=== PATIENT | female | born 1995 | race Two or more races ===

== ENCOUNTER 2021-10-03 02:19 | Emergency (ER) | payer SELFPAY ==
[~2021-10-03] VITALS: Ht 180.3 cm; Wt 103.9 kg
--- NOTE | 2021-10-03 03:29 | PHYS DOC ---
Past Medical History Past Surgical History: No Surgical History (SCOTT REDDY MD) General Adult EDM: Chief Complaint: FACE PAIN HPI: HPI: Patient is a 26 year old female who presents with multiple complaints. 1. Abdominal pain States that she has lower abdominal pain in the bilateral lower quadrants. Radiates towards the back. Associated with nausea, vomiting, chills. No fever s. No changes in bowel movements. No vaginal discharge or bleeding. Denies dysuria or urgency, but has had increased urinary frequency. States that this pain has been ongoing for 2 years, but over the past week it has increased in frequency and intensity. States that the pain ramps up and feels very sharp, and it sometimes improves on its own. 2. Headache, left sided numbness Patient states for the past week has been getting intermittent headaches. Described as sharp. 7/10 pain. Not sudden onset. When she gets the headaches she also has left sided numbness. States the left side of her tongue, her left arm, and her left leg are affected. She feels like it hurts to move anything on the left side when this happens so thinks her left side may be slightly weak. When the headache goes away her numbness also improves. No speech difficulty, facial assymmetry, confusion, or coordination difficulty. States she has never had these symptoms before the past week. (SCOTT REDDY MD) Review of Systems: Review of Systems: Constitutional: Denies fever or chills. [] Eyes: Denies change in visual acuity. [] HENT: Denies nasal congestion or sore throat. [] Respiratory: Denies cough or shortness of breath. [] Cardiovascular: Denies chest pain or edema. [] GI: Denies abdominal pain, nausea, vomiting, bloody stools or diarrhea. [] : Denies dysuria. [] Musculoskeletal: Denies back pain or joint pain. [] Integument: Denies rash. [] Neurologic: Denies headache, focal weakness or sensory changes. [] Endocrine: Denies polyuria or polydipsia. [] Lymphatic: Denies swollen glands. [] Psychiatric: Denies depression or anxiety. [] (SCOTT REDDY MD) Heart Score: C/O Chest Pain: No (SCOTT REDDY MD) C/O Chest Pain: N/A (RIOJAS,PETER T DO) Allergies: Allergies: Allergies Coded Allergies Type Severity Reaction Last Updated Verified No Known Drug Allergies 10/03/21 No (SCOTT REDDY MD) Physical Exam: PE: Constitutional: Well developed, well nourished, no acute distress, non-toxic appearance. [] HENT: Normocephalic, atraumatic. Eyes: PERRLA, EOMI, conjunctiva normal, no discharge. [] Neck: Normal range of motion, no tenderness, supple, no stridor. [] Cardiovascular:Heart rate regular rhythm, no murmur [] Lungs & Thorax: Bilateral breath sounds clear to auscultation [] Abdomen: Mild lower abdominal tenderness with palpation in the bilateral lower quadrants. No guarding. Nonperitoneal. Skin: Warm, dry, no erythema, no rash. [] Extremities: No tenderness, no cyanosis, no clubbing, ROM intact, no edema. [] Neurologic: Alert, oriented to person, place, time. Face is symmetric. Speech is normal. Cranial nerves III-XII intact. 5/5 strength in bilateral upper and lower extremities in all dermatomes. No dysmetria with [id number] or [id number] testing. Gait is stable. Psychologic: Affect normal, judgement normal, mood normal. [] (SCOTT REDDY MD) Current Patient Data: Vital Signs: Vital Signs Date Time Temp Pulse Resp B/P (MAP) Pulse Ox O2 Delivery O2 Flow Rate FiO2 10/03/21 02:41 97.8 76 16 130/62 (84) 98 Room Air 97.8 (SCOTT REDDY MD) Labs: Laboratory Tests Test 10/03/21 04:15 10/03/21 04:21 White Blood Count 8.6 x10^3/uL Red Blood Count 4.81 x10^6/uL Hemoglobin 13.9 g/dL Hematocrit 40.6 % Mean Corpuscular Volume 85 fL Mean Corpuscular Hemoglobin 29 pg Mean Corpuscular Hemoglobin Concent 34 g/dL Red Cell Distribution Width 13.2 % Platelet Count 273 x10^3/uL Neutrophils (%) (Auto) 54 % Lymphocytes (%) (Auto) 34 % Monocytes (%) (Auto) 8 % Eosinophils (%) (Auto) 3 % Basophils (%) (Auto) 1 % Neutrophils # (Auto) 4.7 x10^3/uL Lymphocytes # (Auto) 2.9 x10^3/uL Monocytes # (Auto) 0.7 x10^3/uL Eosinophils # (Auto) 0.3 x10^3/uL Basophils # (Auto) 0.1 x10^3/uL Urine Collection Type Void Urine Color Yellow Urine Clarity Clear Urine pH 6.0 Urine Specific [place] >=1.030 Urine Protein Negative mg/dL Urine Glucose (UA) Negative mg/dL Urine Ketones (Stick) Negative mg/dL Urine Blood Trace Urine Nitrite Negative Urine Bilirubin Negative Urine Urobilinogen Dipstick 0.2 mg/dL Urine Leukocyte Esterase Negative Urine RBC 1-2 /HPF Urine WBC 1-4 /HPF Urine Squamous Epithelial Cells Mod /LPF Urine Bacteria 0 /HPF Urine Mucus Mod /LPF Sodium Level 139 mmol/L Potassium Level 3.9 mmol/L Chloride Level 106 mmol/L Carbon Dioxide Level 25 mmol/L Anion Gap 8 Blood Urea Nitrogen 16 mg/dL Creatinine 0.8 mg/dL Estimated GFR (Cockcroft-Gault) 86.7 BUN/Creatinine Ratio 20 Glucose Level 110 mg/dL Calcium Level 8.2 mg/dL Total Bilirubin 0.4 mg/dL Aspartate Amino Transf (AST/SGOT) 33 U/L Alanine Aminotransferase (ALT/SGPT) 87 U/L Alkaline Phosphatase 124 U/L Total Protein 8.3 g/dL Albumin 3.9 g/dL Albumin/Globulin Ratio 0.9 Lipase 62 U/L Bedside Urine HCG, Qualitative Hcg negative Current Medications Medications (Trade) Dose Ordered Sig/Dejuan Route PRN Reason Start Time Stop Time Status Last Admin Dose Admin Prochlorperazine Edisylate (Compazine) 10 mg 1X ONCE IV 10/03/21 04:00 10/03/21 04:01 DC 10/03/21 04:00 Ketorolac Tromethamine (Toradol 15mg Vial) 15 mg 1X ONCE IVP 10/03/21 04:00 10/03/21 04:01 DC 10/03/21 04:00 Diphenhydramine HCl (Benadryl) 25 mg 1X ONCE IVP 10/03/21 04:00 10/03/21 04:01 DC 10/03/21 04:00 Iohexol (Omnipaque 350 Mg/ml) 75 ml 1X ONCE IV 10/03/21 06:00 10/03/21 06:01 DC 10/03/21 06:26 Info (CONTRAST GIVEN -- Rx MONITORING) 1 each PRN DAILY PRN MC SEE COMMENTS 10/03/21 05:45 10/05/21 05:44 (JORDYN RIOJAS DO) EKG: EKG: [] (SCOTT REDDY MD) Radiology/Procedures: Radiology/Procedures: [] Impression: [facility] [address] [place] [address] IMAGING REPORT Signed PATIENT: NENA BENNETT ACCOUNT: [id number] : 1995 LOCATION: ER AGE: 26 SEX: F EXAM STATUS: REG ER ORD. PHYSICIAN: SCOTT REDDY MD REASON: headache, left sided "numbness" PROCEDURE: CT HEAD WO CONTRAST CT Head W/O Contrast: History: Reason: headache, left sided "numbness" Comparison: none Axial images were obtained without contrast. The dinh and white matter appears normal and symmetrical for the patients age. There is no mass effect, extraaxial fluid collections or hydrocephalus. There is no gross bleed. There is no focal loss of dinh-white matter distinction to suggest acute ischemia, i.e. stroke. Impression: No acute findings. RS Compliance Statement: One or more of the following individualized dose reduction techniques were utilized for this examination: 1. Automated exposure control 2. Adjustment of the mA and/or kV according to patient size 3. Use of iterative reconstruction technique Electronically signed by: Yani Meléndez III, MD (10/03/2021 4:40 AM) [facility] DICTATED and SIGNED BY: YANI MELÉNDEZ III, MD DATE: 10/03/21 [id number] (SCOTT REDDY MD) Radiology/Procedures: [facility] [address] [place] [address] IMAGING REPORT Signed PATIENT: NENA BENNETT ACCOUNT: [id number] : 1995 LOCATION: ER AGE: 26 SEX: F EXAM STATUS: REG ER ORD. PHYSICIAN: SCOTT REDDY MD REASON: headache, left sided "numbness" PROCEDURE: CT HEAD WO CONTRAST CT Head W/O Contrast: History: Reason: headache, left sided "numbness" Comparison: none Axial images were obtained without contrast. The dinh and white matter appears normal and symmetrical for the patients age. There is no mass effect, extraaxial fluid collections or hydrocephalus. There is no gross bleed. There is no focal loss of dinh-white matter distinction to suggest acute ischemia, i.e. stroke. Impression: No acute findings. RS Compliance Statement: One or more of the following individualized dose reduction techniques were utilized for this examination: 1. Automated exposure control 2. Adjustment of the mA and/or kV according to patient size 3. Use of iterative reconstruction technique Electronically signed by: Yani Meléndez III, MD (10/03/2021 4:40 AM) [facility] DICTATED and SIGNED BY: YANI MELÉNDEZ III, MD DATE: 10/03/21 [id number] [facility] [address] [place] [address] IMAGING REPORT Signed PATIENT: NENA BENNETT ACCOUNT: [id number] : 1995 LOCATION: ER AGE: 26 SEX: F EXAM STATUS: REG ER ORD. PHYSICIAN: SCOTT REDDY MD REASON: headache, reported left sided numbness. Angiogram recommended by neurology. PROCEDURE: CT ANGIOGRAPHY HEAD AND NECK CTA head and CTA neck with contrast History: Headache and left-sided numbness Technique: Axial helical images were obtained of the head and neck after the intravenous administration of 75 mL of Isovue-370 IV contrast. Multiplanar reconstruction was performed on an independent work station including MIP imaging and 3D angiographic imaging. Comparison: none CTA head with and without contrast. Findings: Brain: The dinh and white matter appears symmetrical. There is no mass effect, extra-axial fluid collections or hydrocephalus. There is no gross bleed. Distal carotid arteries: normal caliber Vertebral basilar system normal Major cerebral arteries: normal Impression: no acute findings end impression CTA neck with contrast: Findings: Aortic arch and origin of great vessels: normal Common carotid arteries: Right: normal Left: normal Internal carotid arteries: Right: normal Left: normal Vertebral basilar system normal Impression: No significant stenosis. PQRS Compliance Statement - Stenosis calculations for CT, MR and conventional angiography are based upon measurement of the distal ICA diameter in accordance with the NASCET methodology. Stenosis calculations for carotid ultrasound studies are derived from validated velocity criteria which are known to correlate with the NASCET methodology. PQRS Compliance Statement: One or more of the following individualized dose reduction techniques were utilized for this examination: 1. Automated exposure control 2. Adjustment of the mA and/or kV according to patient size 3. Use of iterative reconstruction technique Electronically signed by: Yani Meléndez III, MD (10/03/2021 6:49 AM) [facility] DICTATED and SIGNED BY: YANI MELÉNDEZ III, MD DATE: 10/03/21 [id number] [facility] [address] [place] [address] IMAGING REPORT Signed PATIENT: NENA BENNETT ACCOUNT: [id number] : 1995 LOCATION: ER AGE: 26 SEX: F EXAM STATUS: REG ER ORD. PHYSICIAN: SCOTT REDDY MD REASON: pelvic pain PROCEDURE: PELVIS W/TV Transvaginal ultrasound pelvis HISTORY: Pelvic pain Sonographic examination of the pelvis was performed by transvaginal technique. Multiple static images were obtained. FINDINGS: The uterus and ovaries appear normal. The uterus measures 7.3 x 4.1 x 3.2 cm. The endometrium measures 5.2 mm in thickness. The right ovary measures 3.3 x 4.6 x 2.2 cm. The left ovary measures 2.6 x 3.3 x 2.0 cm. There is normal ovarian blood flow bilaterally. IMPRESSION: Negative examination. Electronically signed by: Yani Meléndez III, MD (10/03/2021 6:04 AM) [facility] DICTATED and SIGNED BY: YANI MELÉNDEZ III, MD DATE: 10/03/21 [id number] (JORDYN RIOJAS DO) Course & Med Decision Making: Course & Med Decision Making Pertinent Labs and Imaging studies reviewed. (See chart for details) Patient is a 26-year-old female who presents with multiple complaints. 1. Lower abd pain, n/v, urinary frequency -Labs largely unremarkable, mild LFT elevation. No upper abdominal discomfort to suggest a primary hepatobiliary pathology. -Upreg negative -UA not convincing for infection -Based on vitals, abd exam, and labs I have a low suspicion for infectious intrabdominal pathology such as appy. -Will obtain pelvic US to attempt risk stratify for torsion 2. Intermittent headache with left sided numbness -Neuro exam objectively normal -Vitals signs stable -CT head WO normal -Discussed with neurology, Dr. Rordigez, who recommends CT angiogram to exclude AVM. If negative he recommends outpatient follow up with his office for presumed complex migraine. Pelvic US and CTA pending at time of sign out to oncoming phsyician, Dr. Riojas. [id number] (SCOTT REDDY MD) Course & Med Decision Making Patient is a 26-year-old female who present to ER for evaluation of lower abdominal pain, pelvic pain for more than a year off and on. She also complains of headache and left-sided facial numbness for a week. Her lab work did not show any acute problem. CTA her head and CT head did not show any acute problem. Pelvic ultrasound did not show any acute problem. Patient is pain- free at this time. With the battery starter phone, I was able to explain the diagnostic work-up findings and instruction to go home. Patient is to follow-up with the neurologist for outpatient evaluation of her headache. (JORDYN RIOJAS DO) Dragon Disclaimer: Dragon Disclaimer: This electronic medical record was generated, in whole or in part, using a voice recognition dictation system. (SCOTT REDDY MD) Departure Departure Impression: Primary Impression: Headache Additional Impressions: Left sided numbness Abdominal discomfort, bilateral lower quadrant Disposition: HOME / SELF CARE / HOMELESS Condition: STABLE Referrals: NO PCP (PCP) BRANDON RODRIGEZ MD Please follow up with this neurologist for outpatient evaluation of your headache and left side facial numbness Patient Instructions: Abdominal Pain, General Headache Without Cause Additional Instructions: Thank you for visiting our Emergency Department. We appreciate you trusting us with your care. If any additional problems come up don't hesitate to return to visit us. Please follow up with your primary care provider so they can plan additional care if needed and know about the problem that you had. If symptoms worsen come back to the Emergency Department. Any concerning symptoms that start such as chest pain, shortness of air, weakness or numbness on one side of the body, running high fevers or any other concerning symptoms return to the ER. SCOTT REDDY MD Oct 03, 2021 03:29 JORDYN RIOJAS DO Oct 03, 2021 07:34
[2021-10-03] MEDS ORDERED: PROCHLORPERAZINE 10 MG/2 ML VIAL. IV ONE (04:00)
[2021-10-03] MEDS ORDERED: diphenhydrAMINE 50 MG/ML VIAL IVP ONE (04:00)
[2021-10-03] MEDS ORDERED: KETOROLAC 15 MG/ML VIAL. IVP ONE (04:00)
[2021-10-03 04:24] LABS: BASO # 0.1 x10^3/uL (0.0-0.2); BASO % 1 % (0-3); EOS # 0.3 x10^3/uL (0.0-0.7); EOS % 3 % (0-3); HEMATOCRIT 40.6 % (36.0-47.0); HEMOGLOBIN 13.9 g/dL (12.0-15.5); LYMPH # 2.9 x10^3/uL (1.0-4.8); LYMPH % 34 % (24-48); MEAN CORPUSCULAR HEMOGLOBIN 29 pg (25-35); MEAN CORPUSCULAR HGB CONC 34 g/dL (31-37); MEAN CORPUSCULAR VOLUME 85 fL (79-100); MONO # 0.7 x10^3/uL (0.0-1.1); MONO % 8 % (0-9); NEUT # 4.7 x10^3/uL (1.8-7.7); NEUT % 54 % (31-73); PLATELET COUNT 273 x10^3/uL (140-400); RED BLOOD COUNT 4.81 x10^6/uL (3.50-5.40); RED CELL DISTRIBUTION WIDTH 13.2 % (11.5-14.5); WHITE BLOOD COUNT 8.6 x10^3/uL (4.0-11.0)
[2021-10-03 04:36] LABS: CALCIUM 8.2 mg/dL (8.5-10.1); CREATININE 0.8 mg/dL (0.6-1.0); GFR 86.7; POTASSIUM 3.9 mmol/L (3.5-5.1)
[2021-10-03 04:37] LABS: BILIRUBIN,URINE NEGATIVE (NEG); CLARITY,URINE CLEAR; COLOR,URINE YELLOW; NITRITE,URINE NEGATIVE (NEG); PROTEIN,URINE NEGATIVE (NEG-TRACE); UROBILINOGEN,URINE 0.2 mg/dL (0.2 mg/dL)
[2021-10-03 04:42] LABS: ALBUMIN 3.9 g/dL (3.4-5.0); ALBUMIN/GLOBULIN RATIO 0.9 (1.0-1.7); TOTAL BILIRUBIN 0.4 mg/dL (0.2-1.0); TOTAL PROTEIN 8.3 g/dL (6.4-8.2)
--- NOTE | 2021-10-03 04:42 | RAD ---
CT Head W/O Contrast: History: Reason: headache, left sided "numbness" Comparison: none Axial images were obtained without contrast. The dinh and white matter appears normal and symmetrical for the patients age. There is no mass effe ct, extraaxial fluid collections or hydrocephalus. There is no gross bleed. There is no focal loss of dinh-white matter distinction to suggest acute ischemia, i.e. stroke. Impression: No acute findings. PQRS Compliance Statement: One or more of the following individualized dose reduction techniques were utilized for this examinat ion: 1. Automated exposure control 2. Adjustment of the mA and/or kV according to patient size 3. Use of iterative reconstruction technique Electronically signed by: Luis Sinha III, MD (10/03/2021 4:40 AM) [facility]
[2021-10-03 04:47] LABS: BACTERIA,URINE 0 /HPF (0-FEW)
[2021-10-03] MEDS ORDERED: CONTRAST GIVEN. MC PRN (05:45)
[2021-10-03] MEDS ORDERED: IOHEXOL 350 MG/ML 100 ML VIAL. IV ONE (06:00)
--- NOTE | 2021-10-03 06:06 | RAD ---
Transvaginal ultrasound pelvis HISTORY: Pelvic pain Sonographic examination of the pelvis was performed by transvaginal technique. Multiple static images were obtained. FINDINGS: The uterus and ovaries appear normal. The uterus measures 7.3 x 4.1 x 3.2 cm. The endometrium measure s 5.2 mm in thickness. The right ovary measures 3.3 x 4.6 x 2.2 cm. The left ovary measures 2.6 x 3.3 x 2.0 cm. There is nor mal ovarian blood flow bilaterally. IMPRESSION: Negative examination. Electronically signed by: Luis Sinha III, MD (10/03/2021 6:04 AM) [facility]
--- NOTE | 2021-10-03 06:52 | RAD ---
CTA head and CTA neck with contrast History: Headache and left-sided numbness Technique: Axial helical images were obtained of the head and neck after the intravenous administrati on of 75 mL of Isovue-370 IV contrast. Multiplanar reconstruction was performed on an independent wo rk station including MIP imaging and 3D angiographic imaging. Comparison: none CTA head with and without contrast. Findings: Brain: The dinh and white matter appears symmetrical. There is no mass effect, extra-axial fluid co llections or hydrocephalus. There is no gross bleed. Distal carotid arteries: normal caliber Vertebral basilar system normal Major cerebral arteries: normal Impression: no acute findings end impression CTA neck with contrast: Findings: Aortic arch and origin of great vessels: normal Common carotid arteries: Right: normal Left: normal Internal carotid arteries: Right: normal Left: normal Vertebral basilar system normal Impression: No significant stenosis. PQRS Compliance Statement - Stenosis calculations for CT, MR and conventional angiography are based u onesimo measurement of the distal ICA diameter in accordance with the NASCET methodology. Stenosis calcu lations for carotid ultrasound studies are derived from validated velocity criteria which are known t o correlate with the NASCET methodology. PQRS Compliance Statement: One or more of the following individualized dose reduction techniques were utilized for this examinat ion: 1. Automated exposure control 2. Adjustment of the mA and/or kV according to patient size 3. Use of iterative reconstruction technique Electronically signed by: Luis Sinha III, MD (10/03/2021 6:49 AM) [facility]
[2021-10-03 07:37] VITALS: BP 126/64
== END 2021-10-03 07:44 | disposition home or self-care (01) ==
LOC: ER 02:19
DX: R51.9 Headache, unspecified (principal); R10.31 Right lower quadrant pain; R10.32 Left lower quadrant pain; R11.2 Nausea with vomiting, unspecified; R20.0 Anesthesia of skin
CPT/HCPCS: 36415; 70450; 70496; 70498; 76830; 76856; 80053; 81001; 81025; 83690; 85025; 96374; 96375; 99285; J0780; J1200; J1885; Q9967